=== PATIENT | male | born 1955 | race Caucasian/White ===

== ENCOUNTER 2018-06-02 07:14 | Emergency (ER) | payer BC ==
--- NOTE | 2018-06-02 07:54 | EDM.PDOC ---
ED HPI GENERAL MEDICAL PROBLEM - General Chief Complaint: Syncope Stated Complaint: "passed out" and fell Time Seen by Provider: 06/02/18 07:30 - History of Present Illness INITIAL COMMENTS - FREE TEXT/NARRATIVE: Glenn is a 62 year old male who presents to the ED with c/o a syncopal episode. He reports around 0530 this morning he got up to go to the bathroom. Reports he was urinating and then got very hot and sweaty. reports he was pale and unresponsive. Unsure how long this lasted. estimates ~5 minutes, the time it took for her to call 911. EMS did have difficult time getting to house, as they got stuck, so there was delay in getting there. Patient reports he woke up and was able to get up per self. Reports he is feeling well now. Does note he drank about 50 oz of water yesterday. Did not sleep through the night due to his back pain. Does note that he threw his back out yesterday and has been having low back pain since. Has been taking Deonte aspirin back for this. He reports pain is in lower back muscles. Upon ED presentation, patient has no symptoms other than low back spasms. He denies any chest pain, shortness of breath, dizziness, presyncopal feeling. Reports he is feeling well. Onset: Today, Sudden Onset Date: 06/02/18 Onset Time: 05:30 Duration: Resolved Prior to Arrival Location: Reports: Generalized (syncope) Associated Symptoms: Reports: Diaphoresis, Syncope. Denies: Confusion, Cough, cough w sputum, Fever/Chills, Headaches, Loss of Appetite, Malaise, Nausea/ Vomiting, Rash, Seizure, Shortness of Breath, Weakness Back Pain Score (Numeric/FACES): 3 - Related Data Allergies Allergy/AdvReac Type Severity Reaction Status Date / Time No Known Allergies Allergy Verified 06/02/18 07:17 Home Meds: Home Meds Cyclobenzaprine [Flexeril] 10 mg PO BID PRN #20 tab 06/02/18 [Rx] Finasteride [Proscar] 5 mg PO DAILY 06/02/18 [History] Tamsulosin [Flomax] 2 cap PO DAILY 06/02/18 [History] Past Medical History HEENT History: Reports: Cataract - Past Surgical History HEENT Surgical History: Reports: Cataract Surgery, Detached Retina, Other (See Below) Other HEENT Surgeries/Procedures: metal in eye Musculoskeletal Surgical History: Reports: Arthroscopic Knee Social & Family History - Tobacco Use Smoking Status *Q: Never Smoker - Caffeine Use Caffeine Use: Reports: Coffee - Recreational Drug Use Recreational Drug Use: No ED ROS GENERAL - Review of Systems Review Of Systems: ROS reveals no pertinent complaints other than HPI. - Physical Exam Exam: See Below Exam Limited By: No Limitations General Appearance: Alert, WD/WN, No Apparent Distress Eye Exam: Bilateral Eye: EOMI, Normal Fundi, Normal Inspection, PERRL Head Exam: Atraumatic, Normocephalic Neck: Normal Inspection, Supple, Non-Tender, Full Range of Motion Respiratory/Chest: No Respiratory Distress, Lungs Clear, Normal Breath Sounds, No Accessory Muscle Use, Chest Non-Tender Cardiovascular: Normal Peripheral Pulses, Regular Rate, Rhythm, No Edema, No Gallop, No JVD, No Murmur, No Rub GI/Abdominal: Normal Bowel Sounds, Soft, Non-Tender, No Organomegaly, No Distention, No Abnormal Bruit, No Mass Neuro Exam (Abbreviated): Alert, Oriented, CN II-XII Intact, Normal Cognition, Normal Gait, Normal Reflexes, No Motor/Sensory Deficits Back Exam: Decreased Range of Motion, Muscle Spasm Extremities: Normal Inspection, Normal Range of Motion, Non-Tender, No Pedal Edema, Normal Capillary Refill Psychiatric: Normal Affect, Normal Mood Skin Exam: Warm, Dry, Intact, Normal Color, No Rash Course - Vital Signs Last Recorded V/S: Last Vital Signs Temp 96 F 06/02/18 07:14 Pulse 63 06/02/18 07:32 Resp 16 06/02/18 07:32 BP 115/71 06/02/18 07:32 Pulse Ox 100 06/02/18 07:32 - Orders/Labs/Meds Labs: Laboratory Tests 06/02/18 06/02/18 Range/Units 07:34 07:51 WBC 7.3 (5.0-10.0) 10^3/uL RBC 4.85 (4.50-6.00) 10^6/uL Hgb 14.5 (14.0-18.0) g/dL Hct 42.6 (40.0-54.0) % MCV 87.8 (82.0-94.0) fL MCH 29.9 (27.0-32.0) pg MCHC 34.0 (33.0-38.0) g/dL RDW Coeff of Anjum 13.1 (11.0-15.0) % Plt Count 147 L (150-400) 10^3/uL Neut % (Auto) 85.0 (35-85) % Lymph % (Auto) 6.3 L (10-55) % King % (Auto) 7.8 (0-16) % Eos % (Auto) 0.8 (0-5) % Baso % (Auto) 0.1 (0-3) % Neut # (Auto) 6.18 (1.80-7.00) 10^3/uL Lymph # (Auto) 0.46 L (1.00-4.80) 10^3/uL King # (Auto) 0.57 (0.00-0.80) 10^3/uL Eos # (Auto) 0.06 (0.00-0.45) 10^3/uL Baso # (Auto) 0.01 10^3/uL Sodium 141 (136-145) mEq/L Potassium 5.0 (3.5-5.0) mEq/L Chloride 106 (98-106) mEq/L Carbon Dioxide 30 (21-32) mmol/L BUN 19 H (7-18) mg/dL Creatinine 1.0 (0.7-1.3) mg/dL Est Cr Clr Drug Dosing 91.33 mL/min Estimated GFR (MDRD) > 60 (>=60) mL/min Glucose 111 H (75-99) mg/dL Calcium 9.1 (8.4-10.1) mg/dL Total Bilirubin 0.6 (0.0-1.0) mg/dL AST 17 (15-37) U/L ALT 26 (12-78) U/L Alkaline Phosphatase 69 (46-116) U/L Lactate Dehydrogenase 132 (100-190) U/L Creatine Kinase 129 (35-232) U/L Troponin I < 0.017 (0.00-0.06) ng/mL Total Protein 6.7 (6.4-8.2) g/dL Albumin 3.9 (3.4-5.0) g/dL - Re-Assessments/Exams Free Text/Narrative Re-Assessment/Exam: Discussed normal lab and EKG results with patient. Advised follow up with PCP. Departure - Departure Time of Disposition: 08:12 Disposition: Home, Self-Care 01 Condition: Good Clinical Impression: Vasovagal syncope Low back strain Qualifiers: Encounter type: initial encounter Qualified Code(s): S39.012A - Strain of muscle, fascia and tendon of lower back, initial encounter - Discharge Information *PRESCRIPTION DRUG MONITORING PROGRAM REVIEWED*: Not Applicable *COPY OF PRESCRIPTION DRUG MONITORING REPORT IN PATIENT [place]: Not Applicable Prescriptions: Cyclobenzaprine [Flexeril] 10 mg PO BID PRN #20 tab PRN Reason: Pain Instructions: Vasovagal Syncope, Adult Referrals: PCP,None [Primary Care Provider] - Forms: ED Department Discharge Additional Instructions: 1) Take it easy today. Rest and push fluids. At least 64 oz water daily. 2) Activity as tolerated with lower back pain. Recommend ibuprofen or Tylenol. Flexeril as needed. Discussed that this medication can make you drowsy, so use extra caution with recent syncopal episode. Recommend use at bedtime. Ice/heat to lower back as needed for comfort. 3) Change positions slowly. 4) Follow up with PCP for ED follow up in next 5-7 days.
[2018-06-02 08:03] LABS: CHLORIDE,CL 106 mEq/L (98-106); SODIUM,NA 141 mEq/L (136-145)
== END 2018-06-02 08:35 | disposition home or self-care (01) ==
LOC: CC.ED 07:14
DX: R55 Syncope and collapse (principal); S39.012A Strain of muscle, fascia and tendon of lower back, initial encounter; Z79.899 Other long term (current) drug therapy; W19.XXXA Unspecified fall, initial encounter
CPT/HCPCS: 36415; 80053; 82550; 83615; 84484; 85025; 93005; 99284